=== PATIENT | male | born 1960 | race Caucasian/White ===

== ENCOUNTER 2019-01-10 10:49 | Outpatient (CLI) | payer MEDICARE ==
[2019-01-10 11:25] LABS: Blood Urea Nitrogen 8 mg/dL (9-20)
--- NOTE | 2019-01-10 15:51 | Cat Scan Report ---
PROCEDURE: CT CHEST W CON TECHNIQUE: CT of the chest was performed. IV contrast was administered. Axial images and coronal and sagittal reformatted images were obtained. 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 There is a mass there is heterogeneous consolidation in the right lower lobe which has a masslike shawna earance. This measures 7.1 x 5.6 x 5.6 cm. Most likely this is a mass. There is also a mass in the left lower lobe measuring 3.9 cm. This is consistent with malignancy. There are at least 5 nodules in the left upper lobe and lingula. The largest of these is in the lingu la measuring 12 mm. There is trace left pleural fluid. IMPRESSION: Large masslike area of consolidation in the right lower lobe is likely a malignant lesion with some a djacent airspace disease. This measures 7.1 x 5.6 x 5.6 cm. There is a 2.9 cm mass in the left lower lobe. There are multiple left upper lobe/lingular additional pulmonary nodules. Trace right pleural fluid. This document is electronically signed by Harmony Dubno MD., January 10 2019 03:48:47 PM ET
--- NOTE | 2019-01-10 15:54 | Cat Scan Report ---
PROCEDURE: CT ABDOMEN PELVIS W CON TECHNIQUE: CT of the abdomen and pelvis was performed. IV contrast was administered. Axial images and coronal and sagittal reformatted images were obtained. 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 There is trace right pleural fluid. The visualized liver, spleen, pancreas, adrenal glands and kidneys demonstrate no significant abnorma lity. There is no abdominal aortic aneurysm. There is no evidence for intestinal obstruction. The appendix is normal. There is no abnormal fluid collection seen. There is no free intraperitoneal air. Bladder is unremarkable. There is no abnormal pelvic fluid collection or mass seen. IMPRESSION: There is no significant abnormality seen in the abdomen or pelvis. There are masses in the lower lungs which are consistent with malignancy and described on separate CT chest study. This document is electronically signed by Harmony Dubon MD., January 10 2019 03:52:04 PM ET
== END 2019-01-10 10:50 | disposition home or self-care (01) ==
LOC: CT 10:49
PROVIDERS: ATTEND Internal Medicine Hematology
DX: C50.921 Malignant neoplasm of unspecified site of right male breast (principal); R91.8 Other nonspecific abnormal finding of lung field
CPT/HCPCS: 36415; 71260; 74177; 82565; 84520; Q9967

== ENCOUNTER 2019-04-10 09:53 | Outpatient (CLI) | payer MEDICARE ==
[2019-04-10 10:34] LABS: Blood Urea Nitrogen 8 mg/dL (9-20)
--- NOTE | 2019-04-10 12:29 | Cat Scan Report ---
CT scan of the chest, abdomen, and pelvis with contrast INDICATION: MALIGNANT NEOPLASM OF MALE BREAST. Follow-up TECHNIQUE: All CT scans at this location are performed using the following dose modulation technique: Automated exposure control. Helical slices were obtained through the chest, abdomen, and pelvis. Intravenous co ntrast is administered. COMPARISON: CT scan dated 01/10/2019 FINDINGS: Chest: There is a masslike lesion in the right lower lobe again noted. This measures 7.1 x 6.5 cm cm currently and measured 7.1 x 5.6 cm previously it appears minimally increased. Mass lesion in the lef t lower lobe measures 3.7 x 3.1 cm on the current study by my measurements and 3.7 x 3 cm on the prio r study by my measurements. There is a 11 mm nodule in the lingula which is unchanged. Second lingular nodule measures 12 mm and is unchanged. There is a small amount of right pleural fluid. There is pleural thickening on the righ t which appears unchanged. There is volume loss on the right which appears unchanged. On review of the mediastinum, or small lymph nodes. These are not pathologically enlarged and appear unchanged from the prior study. ABDOMEN: The liver, spleen, pancreas, adrenal glands, and kidneys are unchanged in appearance. There is no adenopathy. No mass lesions are seen within the abdomen. Pelvis: The bowel contained the pelvis is unremarkable. There is no inflammatory change. There is no adenopathy. On review of bone windows, no acute osseous abnormalities are seen. IMPRESSION: 1. There is minimal increase in size in the mass lesion in the right base. The remaining pulmonary le sions are unchanged. There has been no other significant change in the appearance of the chest. No mass lesions are seen in the abdomen or pelvis. There is no adenopathy. Signer Name: Elías Stark MD Signed: 04/10/2019 12:25 PM Workstation Name: [email or web address]
== END 2019-04-10 09:54 | disposition home or self-care (01) ==
LOC: CT 09:53
PROVIDERS: ATTEND Internal Medicine Hematology
DX: C50.921 Malignant neoplasm of unspecified site of right male breast (principal); R91.1 Solitary pulmonary nodule
CPT/HCPCS: 36415; 71260; 74177; 82565; 84520; Q9967

== ENCOUNTER 2019-09-08 10:30 | Outpatient (CLI) | payer MEDICARE ==
[2019-09-08 11:05] LABS: Blood Urea Nitrogen 13 mg/dL (9-20)
--- NOTE | 2019-09-08 13:35 | Cat Scan Report ---
CT abdomen pelvis w con, CT chest w con INDICATION: MALIGNANT NEOPLASM OF UNSPECIFIED MALE BREAST. TECHNIQUE: All CT scans at this location are performed using the following dose modulation technique: Automated exposure control. Helical slices were obtained through the chest, abdomen, and pelvis following the a dministration of intravenous and oral contrast. COMPARISON: CT scan dated 04/10/2018 FINDINGS: Chest: Mass lesion in the right lower chest measures 7.3 x 6.2 cm currently and measured 7.1 x 6.5 cm previously is essentially unchanged. There is mild pleural thickening on the right which is unchange d. There is a 10 mm nodule in the lingula which measured 11. There is a 5 mm nodule in the left upper lobe which measures 8 mm previously. Mass in the left lower lobe measures 3.7 x 2.6 cm currently and measured 3.7 x 3 cm previously. On review of the mediastinum, no change is seen. Small lymph nodes a re stable in appearance. ABDOMEN: The liver, spleen, pancreas, adrenal glands, and kidneys are unchanged in appearance. The ao rta is normal in diameter. No adenopathy is seen. No mass lesions are seen. Pelvis: There is no obstruction or inflammation. No adenopathy is seen. No mass lesions are seen. On review of bone windows, no acute osseous abnormalities are seen. IMPRESSION: 1. Pulmonary lesions appear essentially unchanged in size and appearance. No new pulmonary nodules or masses are identified. No significant interval change is seen. Signer Name: Elías Stark MD Signed: 09/08/2019 1:31 PM Workstation Name: [id number]
== END 2019-09-08 10:31 | disposition home or self-care (01) ==
LOC: CT 10:30
PROVIDERS: ATTEND Internal Medicine Hematology
DX: R91.1 Solitary pulmonary nodule (principal); C50.929 Malignant neoplasm of unspecified site of unspecified male breast
CPT/HCPCS: 36415; 71260; 74177; 82565; 84520; Q9967

== ENCOUNTER 2019-12-19 09:42 | Outpatient (CLI) | payer MEDICARE ==
[2019-12-19 10:22] LABS: Blood Urea Nitrogen 10 mg/dL (9-20)
--- NOTE | 2019-12-19 12:56 | Cat Scan Report ---
CT CHEST, ABDOMEN AND PELVIS WITH CONTRAST HISTORY: Malignant neoplasm male breast COMPARISON: 09/08/2019 TECHNIQUE: CT images of the chest, abdomen and pelvis were obtained following administration of intra venous contrast. Note: All CT scans at this location are performed using CT dose reduction employed f or ALARA by means of automated exposure control. CONTRAST: 100 ml of Omnipaque 300. Consent was obtained prior to the administration of contrast. FINDINGS: CT CHEST: Heart and Pericardium: No significant abnormality. Vasculature: No significant abnormality. Right Iarknu-x-Cgoa tip is in the right heart. Lymphatics: Mediastinal lymph nodes are stable. The largest is in the AP window and measures 2.0 x 0. 6 cm.. Lungs: The previously identified right lower lobe lung mass now measures 5.9 x 5.4 cm compared to 6.2 x 6.1 cm on the last exam. The left lower lobe lung mass measures 4.0 x 2.8 cm compared to 4.3 x 2.8 cm on the last exam. Additional left upper lobe smaller nodules are less dense and smaller. No new l wali nodule or mass. A stable small right pleural effusion. Trachea and Bronchi: No significant abnormality. Osseous Structures: Normal CT ABDOMEN: Liver: No significant abnormality. Biliary: No significant abnormality. Spleen: No significant abnormality. Unenlarged. Pancreas: No significant abnormality. Adrenals: No significant abnormality. Kidneys: No significant abnormality. Lymphatics: No lymphadenopathy. Vasculature: No significant abnormality. Bowel/Peritoneum: No significant abnormality. No free air. No free fluid. Appendix not visualized. No pericecal inflammation. CT PELVIS: : No significant abnormality. Osseous Structures: No suspicious bone lesion. Additional Findings: None IMPRESSION: 1. Smaller bilateral lung masses and no new pulmonary lesions. 2. No evidence of hepatic, gretchen or skeletal metastasis. Signer Name: Sushant Rogers MD Signed: 12/19/2019 12:51 PM Workstation Name: [id number]
== END 2019-12-19 09:43 | disposition home or self-care (01) ==
LOC: CT 09:42
PROVIDERS: ATTEND Internal Medicine Hematology
DX: C50.921 Malignant neoplasm of unspecified site of right male breast (principal); R91.8 Other nonspecific abnormal finding of lung field
CPT/HCPCS: 36415; 71260; 74177; 82565; 84520; Q9967